=== PATIENT | male | born 1980 | race Hispanic/Latino ===

== ENCOUNTER 2019-02-15 17:07 | Emergency (ER) | payer SELFPAY ==
[~2019-02-15] VITALS: Ht 162.6 cm; Wt 90.0 kg
[~2019-02-15 17:07] MED LIST: CLARITIN-D1 TA4 PO
[2019-02-15] MEDS ORDERED: FLOXIN OTIC0.3 % AD (17:19)
[2019-02-15] MEDS ORDERED: AMOXICILLIN500 M2 PO (17:19)
[2019-02-15 17:25] VITALS: BP 148/90
== END 2019-02-15 17:25 | disposition home or self-care (01) | DRG 156 ==
LOC: ED 17:07
DX: H60.91 Unspecified otitis externa, right ear (principal); H66.91 Otitis media, unspecified, right ear